=== PATIENT | female | born 1965 | race Two or more races ===

== ENCOUNTER → 2023-03-31 | Day surgery (SDC) | payer OTHER ==
[2023-03-27 11:57] LABS: Urine Bacteria NONE SEEN /hpf (None Seen); Urine Blood Negative /uL (Negative); Urine Clarity Clear (Clear); Urine Color Yellow (Yellow); Urine Protein, UAD Negative (Negative); Urine Specific Gravity 1.021 (1.001-1.035); Urine Urobilinogen Normal (Negative); Urine WBC <1 /hpf (0 - 5)
[2023-03-27 11:58] LABS: Basophils # (auto) 0 10 ^3/uL (0-0.2); Basophils % (auto) 0.4 % (0.0-2.0); Eosinophils # (auto) 0.1 10 ^3/uL (0-0.8); Eosinophils % (auto) 1.5 % (0.0-7.0); Hematocrit 44.1 % (36.0-46.0); Hemoglobin 15.1 g/dL (12.2-16.2); Lymphocytes # (auto) 1.6 10 ^3/uL (0.4-5.4); Lymphocytes % (auto) 25.4 % (10.0-50.0); Mean Corpuscular Hemoglobin 31.7 pg (28.0-32.0); Mean Corpuscular Hgb Conc. 34.2 g/dL (32.0-36.0); Mean Corpuscular Volume 92.6 fL (80.0-100.0); Monocytes # (auto) 0.5 10 ^3/uL (0-1.3); Monocytes % (auto) 8.2 % (0.0-12.0); Neutrophils % (auto) 64.5 % (37.0-80.0); Nucleated Red Blood Cells % 0.1 %; Red Blood Cells 4.77 10^6/uL (4.0-5.20); Red Cell Distribution Width 13.2 % (11.8-14.3); White Blood Cell 6.1 10^3/uL (4.4-10.8)
[2023-03-27 12:16] LABS: INR 1.01 (0.9-1.15); Partial Thromboplastin Time 32.4 SEC (24.5-34.5); Prothrombin Time 10.6 sec (9.3-11.8)
[2023-03-27 13:36] LABS: Alanine Aminotransferase 13 U/L (7-40); Albumin 5.2 g/dL (3.2-4.8); Alkaline Phosphatase 80 U/L (46-116); Anion Gap 7 (5-15); Aspartate Aminotransferase 14 U/L (13-40); BUN/Creatinine Ratio 15.9 (10.0-20.0); Blood Urea Nitrogen 13 mg/dL (9-23); Calcium 10.2 mg/dL (8.5-10.1); Carbon Dioxide 29 mmol/L (20-30); Chloride 104 mmol/L (98-107); Glucose 103 mg/dL (74-106); Potassium 4.2 mmol/L (3.5-5.1); Sodium 140 mmol/L (136-145)
[2023-03-27 13:37] LABS: Bilirubin, Total 0.6 mg/dL (0.2-1.0); Total Protein 7.8 g/dL (5.7-8.2)
[~2023-03-31] VITALS: Ht 172.7 cm; Wt 65.8 kg
[~2023-03-31] MED LIST: AUG875T PO; BUPIVACAINE 0.5% P/F INJ 10 ML VIAL ONE; BUPIVACAINE HCL 0.25% P/F 10 ML VIAL ONE; BUPIVACAINE W/ EPINEPH 0.5% MPF 30ML VIAL IJ ONE; CLIN300C70 PO; CLINDAMYCIN 600MG IV 50 ML IV ONE; DexAMETHasone SOD PHOS 10MG/1ML VIAL INJ ONE; HYDR-4902 PO; HYDROmorphone HCL 2 MG/ML VL/or syr IV PRN; LIDOCAINE 1% HCL (LOCAL ANESTH.) INJ 20ML MDV ONE; LIDOCAINE 1%HCL (LOCAL ANESTH) 10 ML MDV IJ ONE; MEPERIDINE HCL (25 MG/ML) 1ML VIAL IV PRN; MEPERIDINE HCL (25 MG/ML) 1ML VIAL ONE; ONDANSETRON HCL 4 MG/2 ML VIAL IV PRN; ONDANSETRON HCL 4 MG/2 ML VIAL ONE; ZOLP10TA PO; ceFAZolin 1GM VL ONE; fentaNYL CITRATE 100 MCG/2 ML VL ONE
[2023-03-31 13:14] VITALS: RESP 9; TEMP 97.7; O2SAT 98
[2023-03-31 14:10] VITALS: BP 143/75; PULSE 74; RESP 11; O2SAT 97
== END | disposition home or self-care (01) ==
LOC: SUR 06:19
PROVIDERS: ATTEND Student in an Organized Health Care Education/Training Program
DX: M20.11 Hallux valgus (acquired), right foot (principal); M24.574 Contracture, right foot
CPT/HCPCS: 28270; 28295; 36415; 73620; 73630; 76000; 80053; 81001; 85025; 85610; 85730; C1713; J0690; J1100; J2001; J2175; J2405; J3010; J3490

== ENCOUNTER 2023-08-25 10:30 | Day surgery (SDC) | payer OTHER ==
[2023-08-21 11:38] LABS: Urine Bacteria None Seen /hpf (None Seen)
[2023-08-21 11:50] LABS: Basophils # (auto) 0 10 ^3/uL (0-0.2); Basophils % (auto) 0.4 % (0.0-2.0); Eosinophils # (auto) 0.1 10 ^3/uL (0-0.8); Eosinophils % (auto) 0.9 % (0.0-7.0); Hematocrit 41.1 % (36.0-46.0); Hemoglobin 13.8 g/dL (12.2-16.2); Lymphocytes # (auto) 1.6 10 ^3/uL (0.4-5.4); Mean Corpuscular Hemoglobin 31.1 pg (28.0-32.0); Mean Corpuscular Hgb Conc. 33.6 g/dL (32.0-36.0); Mean Corpuscular Volume 92.5 fL (80.0-100.0); Monocytes # (auto) 0.5 10 ^3/uL (0-1.3); Monocytes % (auto) 8.5 % (0.0-12.0); Neutrophils # (auto) 3.4 10 ^3/uL (1.6-8.6); Neutrophils % (auto) 61.2 % (37.0-80.0); Red Blood Cells 4.45 10^6/uL (4.0-5.20); Red Cell Distribution Width 13.2 % (11.8-14.3); White Blood Cell 5.6 10^3/uL (4.4-10.8)
[2023-08-21 11:57] LABS: Urine Blood Negative /uL (Negative); Urine Clarity Clear (Clear); Urine Color Yellow (Yellow); Urine Mucus FEW (None Seen); Urine Protein, UAD Negative (Negative); Urine Specific Gravity 1.025 (1.001-1.035); Urine Urobilinogen Normal (Negative); Urine WBC 1 /hpf (0 - 5); Urine pH 5.5 (5.0-9.0)
[2023-08-21 12:01] LABS: INR 1.04 (0.9-1.15); Partial Thromboplastin Time 33.3 SEC (24.5-34.5); Prothrombin Time 10.9 sec (9.3-11.8)
[2023-08-21 12:39] LABS: Alanine Aminotransferase 13 U/L (7-40); Albumin 4.9 g/dL (3.2-4.8); Alkaline Phosphatase 90 U/L (46-116); Anion Gap 10 (5-15); Aspartate Aminotransferase 19 U/L (13-40); BUN/Creatinine Ratio 17.5 (10.0-20.0); Bilirubin, Total 0.5 mg/dL (0.2-1.0); Blood Urea Nitrogen 14 mg/dL (9-23); Calcium 10.3 mg/dL (8.5-10.1); Carbon Dioxide 26 mmol/L (20-30); Chloride 104 mmol/L (98-107); Glucose 96 mg/dL (74-106); Potassium 4.2 mmol/L (3.5-5.1); Sodium 140 mmol/L (136-145); Total Protein 7.5 g/dL (5.7-8.2)
[~2023-08-25] VITALS: Ht 172.7 cm; Wt 65.8 kg
[~2023-08-25 10:30] MED LIST changes: -AUG875T PO; -BUPIVACAINE 0.5% P/F INJ 10 ML VIAL ONE; -BUPIVACAINE HCL 0.25% P/F 10 ML VIAL ONE; -BUPIVACAINE W/ EPINEPH 0.5% MPF 30ML VIAL IJ ONE; -CLIN300C70 PO; -CLINDAMYCIN 600MG IV 50 ML IV ONE; -DexAMETHasone SOD PHOS 10MG/1ML VIAL INJ ONE; -HYDR-4902 PO; -HYDROmorphone HCL 2 MG/ML VL/or syr IV PRN; -LIDOCAINE 1% HCL (LOCAL ANESTH.) INJ 20ML MDV ONE; -LIDOCAINE 1%HCL (LOCAL ANESTH) 10 ML MDV IJ ONE; -MEPERIDINE HCL (25 MG/ML) 1ML VIAL IV PRN; -MEPERIDINE HCL (25 MG/ML) 1ML VIAL ONE; -ONDANSETRON HCL 4 MG/2 ML VIAL IV PRN; -ONDANSETRON HCL 4 MG/2 ML VIAL ONE; -ceFAZolin 1GM VL ONE; -fentaNYL CITRATE 100 MCG/2 ML VL ONE
[2023-08-25] MEDS ORDERED: MIDAZOLAM HCL 2MG/2ML 2ml VIAL (1mg/ml) ONE (11:37)
[2023-08-25] MEDS ORDERED: fentaNYL CITRATE 100 MCG/2 ML VL ONE (11:37)
[2023-08-25] MEDS: LIDOCAINE HCL (LOCAL ANESTH.) 0.5 % 50ML MDV IJ ONE (11:59)
[2023-08-25] MEDS: BUPIVACAINE 0.5% P/F INJ 10 ML VIAL ONE (11:59)
[2023-08-25] MEDS ORDERED: PROPOFOL 10 MG/ML 20 ML IV ONE (12:37)
[2023-08-25] MEDS ORDERED: CEPH500C PO (12:38)
[2023-08-25] MEDS ORDERED: HYDR-4902 PO (12:38)
[2023-08-25] MEDS ORDERED: KETAMINE 50mg/ML 1ml syringe ONE (12:44)
[2023-08-25] MEDS ORDERED: ONDANSETRON HCL 4 MG/2 ML VIAL ONE (12:45)
[2023-08-25 12:47] VITALS: TEMP 97.2; O2SAT 100
[2023-08-25] MEDS ORDERED: ONDANSETRON HCL 4 MG/2 ML VIAL IV ONE (13:00)
[2023-08-25] MEDS ORDERED: HYDROmorphone HCL 2 MG/ML VL/or syr IV PRN (13:00)
[2023-08-25 13:32] VITALS: BP 138/79; PULSE 57; RESP 10; O2SAT 97
== END 2023-08-25 13:48 | disposition home or self-care (01) ==
LOC: SUR 10:30
PROVIDERS: ATTEND Student in an Organized Health Care Education/Training Program
DX: T84.84XA Pain due to internal orthopedic prosthetic devices, implants and grafts, initial encounter (principal); G47.00 Insomnia, unspecified; Z79.899 Other long term (current) drug therapy; Z87.09 Personal history of other diseases of the respiratory system; Z90.49 Acquired absence of other specified parts of digestive tract; Z98.890 Other specified postprocedural states; Z88.1 Allergy status to other antibiotic agents; Z80.0 Family history of malignant neoplasm of digestive organs
CPT/HCPCS: 20680; 36415; 73620; 73630; 80053; 81001; 85025; 85610; 85730; J2250; J2405; J2704; J3010; J3490; 76000